=== PATIENT | male | born 1990 | race African-American/Black ===

== ENCOUNTER 2018-05-23 18:06 | Emergency (ER) | payer SELFPAY | END 2018-05-23 18:49 | disposition home or self-care (01) | LOC: ERS 18:06 | DX: S01.111A Laceration without foreign body of right eyelid and periocular area, initial encounter (principal); F17.210 Nicotine dependence, cigarettes, uncomplicated; W22.8XXA Striking against or struck by other objects, initial encounter; Y93.67 Activity, basketball | CPT/HCPCS: 12011 ==

== ENCOUNTER 2018-09-14 13:44 | Observation (INO) | payer SELFPAY ==
[2018-09-14] MEDS ORDERED: Lorazepam 2 MG/ML VIAL ONE (14:25)
[2018-09-14 14:49] LABS: #Lymphocytes 2.9 thou/uL (1.20-3.40); #Monocytes 0.3 thou/uL (0.11-0.59); #Neutrophils 2.8 thou/uL (1.40-6.50); %Basophils 0.8 % (0.0-1.0); %Eosinophils 0.4 % (0.0-10.0); %Lymphocytes 47.9 % (21.0-51.0); %Monocytes 5.3 % (0.0-10.0); %Neutrophils 45.7 % (42.0-75.0); Hemoglobin 11.8 g/dL (14.0-18.0); Mean Corpuscular Hemoglobin 28.8 pg (27.0-31.0); Mean Corpuscular Volume 90.3 fL (78.0-98.0); Mean Platelet Volume 7.7 fL (7.4-10.4); Platelet Count 266 thou/uL (130-400); RBC Distribution Width 12.8 % (11.5-14.5); White Blood Cell (WBC) Count 6.1 thou/uL (4.8-10.8)
[2018-09-14 15:12] LABS: Acetaminophen Less than 6.0 mcg/mL (10.0-30.0); Alcohol Less than 10 mg/dL (Less than 10); Salicylate Less than 8.0 mg/dL (15.0-30.0)
[2018-09-14 15:13] LABS: ALT (SGPT) 17 U/L (8-55); AST (SGOT) 37 U/L (5-34); Albumin 4.2 g/dL (3.5-5.0); Alkaline Phosphatase 77 U/L (40-150); Anion Gap 15 mmol/L (10-20); BUN (Urea Nitrogen) 18 mg/dL (8.9-20.6); Bilirubin, Total 0.5 mg/dL (0.2-1.2); CK (CPK) 1163 U/L (30-200); Calc. Creatinine Clearance 0 mL/min (70-130); Calcium 9.5 mg/dL (7.8-10.44); Carbon Dioxide 22 mmol/L (22-29); Chloride 103 mmol/L (98-107); Estimated GFR-MDRD 64; Globulin 2.7 g/dL (2.4-3.5); Glucose 68 mg/dL (70-105); Potassium 3.4 mmol/L (3.5-5.1); Protein, Total 6.9 g/dL (6.0-8.3); Sodium 137 mmol/L (136-145)
--- NOTE | 2018-09-14 15:30 | PDOC.FPRHP ---
- History of Present Illness Chief Complaint: collapsed History of Present Illness: 28 yo M found down at work. History is provided by since patient is drowsy after just having received ativan. Per , she received call after patient was found down after working outside in heat. He was not convulsing, but slow to respond, incoherent. She divulges he has been drinking more alcohol than water this week and working out in the oil [employer]. She denies chronic alcohol problem and says last drink was two days ago , unsure of the amt. She states patient had complained of right arm and flank soreness yesterday. No hematuria. ED Course: 2mg of ativan due to anxiet - History PMHx: denies PSHx: denies FHx: no hx of seizures Social: 1 pack every q2-3 days, ocassional etoh use up until last week, denies drug use - Review of Systems ROS unobtainable: due to mental status - Vital signs BP: 149/108 HR: 80 RR: 26 Tmax: 98.4 Pox: 100% on RA Wt: 68kg - Physical Exam Constitutional: NAD, well developed HEENT: normocephalic and atraumatic, PERRLA, EOMI, conjunctiva clear, no scleral icterus -HEENT: dry mucosal membranes Neck: supple, trachea midline, no LAD Chest: no lesions Heart: RRR, normal S1/S2 Lungs: CTAB, no respiratory distress Abdomen: soft, non-tender, no hernias Musculoskeletal: ROM grossly normal Neurological: no focal deficit Skin: capillary refill <2 seconds Heme/Lymphatic: no purpura, no petechia FMR H&P: Results - Labs Result Diagrams: 09/14/18 14:36 09/14/18 14:36 Lab results: WBC 6.1 thou/uL (4.8-10.8) 09/14/18 14:36 Hgb 11.8 g/dL (14.0-18.0) L 09/14/18 14:36 Hct 37.0 % (42.0-52.0) L 09/14/18 14:36 MCV 90.3 fL (78.0-98.0) 09/14/18 14:36 Plt Count 266 thou/uL (130-400) 09/14/18 14:36 Neutrophils % 45.7 % (42.0-75.0) 09/14/18 14:36 Sodium 137 mmol/L (136-145) 09/14/18 14:36 Potassium 3.4 mmol/L (3.5-5.1) L 09/14/18 14:36 Chloride 103 mmol/L (98-107) 09/14/18 14:36 Carbon Dioxide 22 mmol/L (22-29) 09/14/18 14:36 BUN 18 mg/dL (8.9-20.6) 09/14/18 14:36 Creatinine 1.57 mg/dL (0.7-1.3) H 09/14/18 14:36 Glucose 68 mg/dL (70-105) L 09/14/18 14:36 Lactic Acid 2.3 mmol/L (0.5-2.2) H 09/14/18 14:36 Calcium 9.5 mg/dL (7.8-10.44) 09/14/18 14:36 Total Bilirubin 0.5 mg/dL (0.2-1.2) 09/14/18 14:36 AST 37 U/L (5-34) H 09/14/18 14:36 ALT 17 U/L (8-55) 09/14/18 14:36 Alkaline Phosphatase 77 U/L (40-150) 09/14/18 14:36 Creatine Kinase 1163 U/L (30-200) H 09/14/18 14:36 Serum Total Protein 6.9 g/dL (6.0-8.3) 09/14/18 14:36 Albumin 4.2 g/dL (3.5-5.0) 09/14/18 14:36 - EKG Interpretation EKG: sinus tachycardia FMR H&P: A/P - Problem List (1) Heat exhaustion Current Visit: Yes Status: Acute Code(s): T67.5XXA - HEAT EXHAUSTION, UNSPECIFIED, INITIAL ENCOUNTER (2) Rhabdomyolysis Current Visit: Yes Status: Acute Code(s): M62.82 - RHABDOMYOLYSIS (3) FOX (acute kidney injury) Current Visit: Yes Status: Acute Code(s): N17.9 - ACUTE KIDNEY FAILURE, UNSPECIFIED - Plan 28yo male presents with heat exhaustion resulting in rhabdo and FOX #Acute Rhabdomyolysis - CK 1163 - Continue LR at 200cc/hr, strict I/O - BMP q6hr to ensure no electrolyte derangements - Repeat CPK in AM - Obtain UDS #FOX 2/2 above - Cr 1.57 - Will recheck BMP in AM - Fluids #Elevated lactic acid -likely 2/2 dehydration -will repeat in 6 hrs #Hypokalemia -3.4, will continue to monitor for hyperkalemia w/ rpt BMP #Heat exhaustion - Monitor and manage as above with close monitoring of temperatures Code Status: FULL DVT ppx: SCDs PCP: None Discussed with Dr. Kingston FMR H&P: Upper Level - Pertinent history 28 y/o M w/ no sig. PMHx presents for eval of possible heat exhaustion s/p working outside all day. Reportedly working outside when he started hyperventilating and having cramping in all extremities. Also per family he has been drinking a lot of alcohol recently. Last Drink Friday per . Pt given ativan in ER. Pt very sleepy during interview, unable to wake significantly to answer questions. Majority of history from family in room and ER report. - Pertinent findings Vitals per communications marketing intern note CK - 1163 Na - 137 K - 3.4 Chl - 103 Co2 - 22 BUN - 18 Cr - 1.57 LA - 2.3 Hgb - 11.8 - Plan Date/Time: 09/14/18 1530 IVictor Manuel MD, have evaluated this patient and agree with findings/plan as outlined by communications marketing intern resident. Pertinent changes/additions are listed here. 28 y/o M w/: 1. Rhabdomyolysis - CK < 1000, low risk for significant renal damage as it is <5000 - S/p 2 L in ER, will place on 200 mL/Hr of LR overnight - Monitor UOP w/ strict I/O's - Lytes WNL at this time, will have q4 hr BMP's to monitor during IVF resuscitation 2. FOX likely 2/2 #1 - IVF as above 3. Elevated LA likely 2/2 #1 - IVF as above - Repeat in 6 hours to trend Addendum - Attending - Attending Attestation Date/Time: 09/14/18 1721 I personally evaluated the patient and discussed the management with Dr. Peoples and Ayaz. I agree with the History, Examination, Assessment and Plan documented above with any addition or exceptions noted below.
[2018-09-14] MEDS ORDERED: Potassium Chloride 20 MEQ TAB PO SCH (16:30)
[2018-09-14] MEDS ORDERED: Ondansetron PF 4 MG/2 ML Vial IVP PRN (17:46)
[2018-09-14] MEDS ORDERED: Ondansetron ODT 4 MG TAB SL PRN (17:46)
[2018-09-14] MEDS ORDERED: Sodium Chloride 0.9% 1,000 ML IV SCH (17:46)
[2018-09-14] MEDS: Lactated Ringer's 1,000 ML IV SCH ×2 (18:14→22:15)
[2018-09-14 21:24] LABS: Lactic Acid 0.9 mmol/L (0.5-2.2)
[2018-09-14 21:30] LABS: ALT (SGPT) 16 U/L (8-55); AST (SGOT) 37 U/L (5-34); Albumin 3.8 g/dL (3.5-5.0); Alkaline Phosphatase 77 U/L (40-150); Anion Gap 12 mmol/L (10-20); BUN (Urea Nitrogen) 14 mg/dL (8.9-20.6); Bilirubin, Total 0.3 mg/dL (0.2-1.2); Calc. Creatinine Clearance 0 mL/min (70-130); Calcium 8.7 mg/dL (7.8-10.44); Carbon Dioxide 25 mmol/L (22-29); Chloride 105 mmol/L (98-107); Estimated GFR-MDRD 86; Globulin 2.7 g/dL (2.4-3.5); Glucose 87 mg/dL (70-105); Potassium 3.5 mmol/L (3.5-5.1); Protein, Total 6.5 g/dL (6.0-8.3); Sodium 138 mmol/L (136-145)
[2018-09-14] MEDS: Acetaminophen 325 MG TAB PO PRN (21:42)
[2018-09-14 23:00] LABS: Bilirubin Negative (Negative); Blood, Urine Negative (Negative); Clarity CLEAR (Clear); Glucose, Urine (Dipstick) Negative (Negative); Leukocyte Negative (Negative); Nitrite Negative (Negative); Protein, Urine (Dipstick) Negative (Neg-Trace); Specific Gravity, Urine 1.016 (1.002-1.036); pH, Urine 6.5 (5.0-9.0)
[2018-09-14 23:08] LABS: Amphetamine Detected (NotDetected); Benzodiazepine Screen Detected (NotDetected); Cocaine Metabolite Screen Not Detected (NotDetected); Medtox Reader # READER 1; Methadone Not Detected (NotDetected); Methamphetamine Not Detected (NotDetected); Opiate Screen Not Detected (NotDetected); Phencyclidine (PCP) Not Detected (NotDetected); THC/Cannabinoid Screen Not Detected (NotDetected); Tricyclic Screen Not Detected (NotDetected)
[2018-09-14 23:09] LABS: Barbiturates Screen Not Detected (NotDetected); Medtox Control Line Valid? VALID (VALID); Oxycodone Screen Not Detected (NotDetected)
[2018-09-15 04:20] VITALS: BMI 20.9
[2018-09-15] MEDS: Lactated Ringer's 1,000 ML IV SCH ×2 (04:43→08:25)
[2018-09-15] MEDS: Acetaminophen 325 MG TAB PO PRN (04:47)
[2018-09-15] MEDS ORDERED: Acetaminophen 325 MG TAB PO PRN (05:50)
--- NOTE | 2018-09-15 06:59 | PDOC.FM ---
- Subjective Subjective: NAEO. Still come muscle cramp. No hematuria. Feels ready to go home. - Objective MAR Reviewed: Yes Vital Signs & Weight: Vital Signs (12 hours) Temp Pulse Resp BP BP Pulse Ox 09/15/18 03:37 97.6 F 68 18 112/71 96 09/14/18 23:34 97.7 F 75 18 112/66 96 09/14/18 19:37 98.2 F 86 18 124/80 97 Weight Weight 58.967 kg I&O: 09/13/18 09/14/18 09/15/18 06:59 06:59 06:59 Intake Total 2880 Balance 2880 Result Diagrams: 09/14/18 14:36 09/15/18 08:30 Phys Exam - Physical Examination Constitutional: NAD HEENT: PERRLA, moist MMs Respiratory: no wheezing, no rales Cardiovascular: RRR, no significant murmur Gastrointestinal: soft, non-tender Neurological: non-focal, moves all 4 limbs Psychiatric: normal affect, A&O x 3 Dx/Plan (1) Heat exhaustion Code(s): T67.5XXA - HEAT EXHAUSTION, UNSPECIFIED, INITIAL ENCOUNTER Status: Acute (2) Rhabdomyolysis Code(s): M62.82 - RHABDOMYOLYSIS Status: Acute (3) FOX (acute kidney injury) Code(s): N17.9 - ACUTE KIDNEY FAILURE, UNSPECIFIED Status: Acute - Plan Plan: #Acute Rhabdomyolysis - CK 1163 -> 636 - Continue LR at 200cc/hr, strict I/O - Elevated lactic acid resolved - UDS positive for amphetamines & benzos #FOX 2/2 above - Cr 1.57 -> 0.88 resolved FOX - Likely pre-renal or nephrotoxic effects from rhabdomylolysis, overall improving - Continue fluids #Elevated lactic acid, resolved #Hypokalemia, resolved #Heat exhaustion - Monitor and manage as above with close monitoring of temperatures #Polysubstance abuse -UDS positive for amephetamines & benzos -Will dependency counselor pt Code Status: FULL DVT ppx: SCDs Dispo: Ready for d/c once CPK trending down & FOX resolved. Counseled extensively on drug cessation, alcohol cessation, continued PO hydration. will f /u [facility] PCP: Amy
[2018-09-15 07:46] VITALS: TEMP 97.9
[2018-09-15 09:33] LABS: Anion Gap 11 mmol/L (10-20); BUN (Urea Nitrogen) 10 mg/dL (8.9-20.6); CK (CPK) 636 U/L (30-200); Calc. Creatinine Clearance 103 mL/min (70-130); Calcium 8.7 mg/dL (7.8-10.44); Carbon Dioxide 27 mmol/L (22-29); Chloride 105 mmol/L (98-107); Estimated GFR-MDRD Greater than 90; Glucose 74 mg/dL (70-105); Potassium 3.8 mmol/L (3.5-5.1); Sodium 139 mmol/L (136-145)
[2018-09-15 11:10] VITALS: BP 113/72
--- NOTE | 2018-09-15 15:15 | PRG ---
DATE OF SERVICE: 09/15/2018 Mr. Eugene is a pleasant 28-year-old black man, who was admitted yesterday with probable heat exhaustion and heat syncope. In the event, he was given fluids and rehydrated. This morning, he looks and feels much better. He did develop very mild rhabdomyolysis and very mild FOX, which is already improving. He is ready for discharge. Job ID: [id number]
--- NOTE | 2018-09-16 02:16 | DIS ---
DATE OF ADMISSION: 09/14/2018 DATE OF DISCHARGE: 09/15/2018 ADMITTING ATTENDING: Ankush Kingston MD. DISCHARGE ATTENDING: [place] MD. RESIDENT: Francisca Jacome, PGY-1. CONSULTS: None. PROCEDURES: None. PRIMARY DIAGNOSES: 1. Heat exhaustion. 2. Elevated CPK, downtrending 3. Amphetamine abuse. 4. Acute kidney injury, now resolved 5. Elevated lactic acid, now resolved DISCHARGE MEDICATIONS: None. DISCONTINUED MEDICATIONS: None. HISTORY OF PRESENT ILLNESS/HOSPITAL COURSE: Mr. Eugene is a 28-year-old male who presented to the ED after coworkers saw him collapse while working outside. Most of the history was elicited from at the time since patient was encephalopathic likely from heat exhaustion. In the ED core temperature remained below 101F and patient was received IV fluids for volume depletion. Apparently patient had been drinking more alcohol than water recently while working in the heat outdoors. Labs were pertinent for an elevated CPK in the 1000s, elevated lactic acid, mild FOX, but were otherwise unremarkable. The patient was started on fluids and clinically improved with reservation of lactic acid, FOX, and downtrending of CPK to 636. UDS was positive for methamphetamine abuse. Patient's symptoms are likely attributable to heat exhaustion triggered from poor hydration and working in the heat and complicated by amphetamine abuse. The patient was instructed to quit drugs and alcohol use and to make sure to stay very well hydrated especially since working outside. He would like to follow up with myself at the [facility] and he is given information to do so and encouraged to do so as well. DISPOSITION: Stable. DISCHARGE INSTRUCTIONS: 1. Location: Home. 2. Diet: Regular diet. 3. Activity: As tolerated. 4. Followup: Please follow up with Dr. Francisca Jacome at [facility] within 7 to 10 days. Job ID: [id number] MTDD
== END 2018-09-15 11:12 | disposition home or self-care (01) ==
LOC: ERS 13:44 → T4-A 17:27
PROVIDERS: ADMIT Emergency Medicine; ATTEND Emergency Medicine
DX: T67.5XXA Heat exhaustion, unspecified, initial encounter (principal); M62.82 Rhabdomyolysis; N17.9 Acute kidney failure, unspecified; F17.210 Nicotine dependence, cigarettes, uncomplicated; E87.6 Hypokalemia; E87.2 Acidosis; F15.10 Other stimulant abuse, uncomplicated; F13.10 Sedative, hypnotic or anxiolytic abuse, uncomplicated; X30.XXXA Exposure to excessive natural heat, initial encounter; Y99.0 Civilian activity done for income or pay
CPT/HCPCS: 36415; 80048; 80053; 80306; 80307; 81003; 82550; 83605; 85025; 93005; 96361; 96374; G0378; J2060

== ENCOUNTER 2018-11-06 04:05 | Emergency (ER) | payer SELFPAY ==
[2018-11-06 04:59] LABS: Hemoglobin 13.9 g/dL (14.0-18.0); Mean Corpuscular Hemoglobin 29.2 pg (27.0-31.0); Mean Corpuscular Volume 91.4 fL (78.0-98.0); Mean Platelet Volume 8.8 fL (7.4-10.4); Platelet Count 199 thou/uL (130-400); RBC Distribution Width 11.9 % (11.5-14.5); Red Blood Cell (RBC) Count 4.77 mill/uL (4.70-6.10)
[2018-11-06 05:06] LABS: ALT (SGPT) 20 U/L (8-55); AST (SGOT) 25 U/L (5-34); Albumin 4.6 g/dL (3.5-5.0); Alkaline Phosphatase 85 U/L (40-150); Anion Gap 14 mmol/L (10-20); BUN (Urea Nitrogen) 10 mg/dL (8.9-20.6); Bilirubin, Total 0.3 mg/dL (0.2-1.2); CK (CPK) 175 U/L (30-200); Calc. Creatinine Clearance 0 mL/min (70-130); Calcium 9.9 mg/dL (7.8-10.44); Carbon Dioxide 28 mmol/L (22-29); Chloride 103 mmol/L (98-107); Estimated GFR-MDRD 87; Globulin 3.3 g/dL (2.4-3.5); Glucose 79 mg/dL (70-105); Potassium 3.7 mmol/L (3.5-5.1); Protein, Total 7.9 g/dL (6.0-8.3); Sodium 141 mmol/L (136-145)
[2018-11-06 05:13] LABS: Lymphocytes 70 % (21-51); MDiff Complete? YES; Monocytes 1 % (0-10); Neutrophil 29 % (42-75); Platelet Morphology Comment Appears Adequate; RBC Morphology Normal
--- NOTE | 2018-11-06 07:45 | RAD ---
XR Chest Pa Lat STANDARD HISTORY: Chest pain COMPARISON: 06/23/2014 FINDINGS: The heart size is normal. The lungs are well expanded without focal areas of consolidation, pneumothorax or pleural effusions. IMPRESSION: No radiographic evidence of acute cardiopulmonary process.
--- NOTE | 2018-11-07 11:54 | EKG ---
Test Reason : Blood Pressure : / mmHG Vent. Rate : 054 BPM Atrial Rate : 054 BPM P-R Int : 138 ms QRS Dur : 086 ms QT Int : 408 ms P-R-T Axes : 044 063 032 degrees QTc Int : 386 ms Sinus bradycardia RSR' or QR pattern in V1 suggests right ventricular conduction delay Borderline ECG Confirmed by OSWALD TAYLOR DO ([id number]), marketing editor REJI SKAGGS ([id number] on 11/07/2018 11:54:18 AM Referred By: Confirmed By:OSWALD TAYLOR DO
== END 2018-11-06 05:21 | disposition home or self-care (01) ==
LOC: ERS 04:05
DX: R07.9 Chest pain, unspecified (principal); F17.210 Nicotine dependence, cigarettes, uncomplicated
CPT/HCPCS: 71046; 80053; 82550; 84484; 85025; 93005